=== PATIENT | male | born 1955 | race Caucasian/White ===

== ENCOUNTER → 2016-12-20 | Outpatient (CLI) | payer MEDICARE ==
[~2016-12-20] MED LIST: ASCO500T2 PO; ASPI81TA50 PO; CALC-98 PO; FISH1CAP PO; HYDR12.58 PO; LACT1CAP3 PO; LOSA1TAB16 PO; OMEG300C PO; OXYC-323 PO; SIMV40TA3 PO
--- NOTE | 2016-12-20 16:08 | RAD ---
CT scan of the chest without contrast 12/20/2016 Clinical history: Metastatic colon cancer with lung mass. Technique: Unenhanced, contiguous, 5 mm axial sections were obtained through the chest and upper abdomen. One or more of the following individualized dose reduction techniques were utilized for this study: 1. Automated exposure control. 2. Adjustment of the mA and/or kV according to patient size. 3. Use of iterative reconstruction technique. Findings: Comparison study dated 08/16/2016. Scattered atherosclerotic plaque formation is seen involving the thoracic aorta and its branches to include the coronary arteries. The heart is normal in size. The thoracic aorta is mildly tortuous. Calcified left hilar and mediastinal lymph nodes are seen. A mass is seen involving the anterior inferior aspect of the right upper lobe. It measures 4.2 x 4.0 x 2.8 cm in transverse, AP and craniocaudal dimensions. It has decreased slightly in size since the previous examination where it measured 4.4 x 5.1 x 2.9 cm in size. Patchy surrounding atelectasis is noted. No new pulmonary mass or nodule is seen. A 4 mm calcified granuloma is seen involving the left upper lobe, unchanged. No acute pulmonary infiltrate is seen. No pleural effusion or pneumothorax is noted. Images through the upper abdomen are unchanged. The osseous structures are unchanged. Impression: Slight interval decrease in size of the mass involving the right upper lobe. No new pulmonary mass is seen.
== END | disposition home or self-care (01) ==
LOC: CT 13:22
PROVIDERS: ATTEND Radiology Radiation Oncology
DX: R91.8 Other nonspecific abnormal finding of lung field (principal); I70.0 Atherosclerosis of aorta; Z85.89 Personal history of malignant neoplasm of other organs and systems
CPT/HCPCS: 71250

== ENCOUNTER → 2017-08-17 | Outpatient (CLI) | payer MEDICARE | END | disposition home or self-care (01) | LOC: CT 12:57 | DX: C18.2 Malignant neoplasm of ascending colon (principal); I25.10 Atherosclerotic heart disease of native coronary artery without angina pectoris; R91.8 Other nonspecific abnormal finding of lung field | CPT/HCPCS: 71250 ==

== ENCOUNTER 2017-08-29 08:43 | Outpatient (CLI) | payer MEDICARE ==
[2017-08-29 09:32] LABS: BASO % 1 % (0-3); EOS % 3 % (0-3); HEMATOCRIT 33.3 % (39.0-53.0); LYMPH # 0.6 x10^3/uL (1.0-4.8); LYMPH % 51 % (24-48); MEAN CORPUSCULAR HEMOGLOBIN 39 pg (25-35); MEAN CORPUSCULAR HGB CONC 36 g/dL (31-37); MEAN CORPUSCULAR VOLUME 107 fL (79-100); MONO % 1 % (0-9); NEUT # 0.6 x10^3uL (1.8-7.7); NEUT % 45 % (31-73); PLATELET COUNT 53 x10^3/uL (140-400); RED BLOOD COUNT 3.12 x10^6/uL (4.30-5.70); RED CELL DISTRIBUTION WIDTH 15.4 % (11.5-14.5)
[2017-08-29 09:34] LABS: WHITE BLOOD COUNT 1.3 x10^3/uL (4.0-11.0)
[2017-08-29 09:35] LABS: ADD MAN DIFF? YES
[2017-08-29 09:37] LABS: INR 1.1 (0.8-1.1); PARTIAL THROMBOPLASTIN TIME 30 SEC (24-38); PROTHROMBIN TIME PATIENT 13.2 SEC (11.7-14.0)
[2017-08-29] MEDS ORDERED: LIDOCAINE WITH 8.4% SOD BICARB 3 ML DISP.SYRIN. (09:51)
[2017-08-29] MEDS ORDERED: fentaNYL PF VIAL 100 MCG/2 ML VIAL (10:05)
[2017-08-29] MEDS ORDERED: MIDAZOLAM HCL/PF 2 MG/2 ML VIAL. (10:05)
[2017-08-29] MEDS: LIDOCAINE WITH 8.4% SOD BICARB 3 ML DISP.SYRIN. IJ (10:19)
[2017-08-29] MEDS: fentaNYL PF VIAL 100 MCG/2 ML VIAL IV (10:19)
[2017-08-29] MEDS: MIDAZOLAM HCL/PF 2 MG/2 ML VIAL. IV (10:19)
[2017-08-29 11:03] LABS: % EOS 2 % (0-5); % LYMPHS 44 % (24-48); % MONOS 2 % (0-10)
[2017-08-29 11:04] LABS: % SEGS 52 % (35-66); ANISOCYTOSIS MOD
[2017-08-29 11:05] LABS: PLT ESTIMATE DECREASED (ADEQUATE)
== END 2017-08-29 11:30 | disposition home or self-care (01) ==
LOC: INTRAD 08:43
DX: C92.00 Acute myeloblastic leukemia, not having achieved remission (principal); D61.818 Other pancytopenia; D53.9 Nutritional anemia, unspecified; D69.6 Thrombocytopenia, unspecified; E78.00 Pure hypercholesterolemia, unspecified; K21.9 Gastro-esophageal reflux disease without esophagitis; Z85.038 Personal history of other malignant neoplasm of large intestine; F41.9 Anxiety disorder, unspecified; F32.9 Major depressive disorder, single episode, unspecified; Z98.890 Other specified postprocedural states
CPT/HCPCS: 36415; 38222; 77012; 85007; 85025; 85610; 85730; 88184; 88185; 88237; 88305; 88311; 88313; 99152; J2250; J3010